=== PATIENT | male | born 1960 | race Caucasian/White ===

== ENCOUNTER 2016-04-29 06:34 | Emergency (ER) | payer MEDICAID ==
[~2016-04-29] VITALS: Ht 185.4 cm; Wt 128.8 kg
[~2016-04-29 06:34] MED LIST: ASPI-231 PO; ATOR20TA50 PO; CHOL20007 OR; DICL50TA4 PO; GABA300C8 PO; HYDR-3028 PO; INSR100KIT SC; Insulin Detemir SC; LEVO150T10 PO; METO25TA5 PO; NITR0.4S29 SL; TRIA75TA66 PO
[2016-04-29] MEDS ORDERED: KETOROLAC TROMETH 30 MG/ML 1ML VIAL IV ONE (09:00)
[2016-04-29] MEDS ORDERED: METOCLOPRAMIDE HCL 5MG/ml INJ 2ml VIAL IV ONE (09:00)
[2016-04-29 09:08] LABS: Basophils # (auto) 0.1 uL; Basophils % (auto) 0.6 % (0.0-2.0); Eosinophils # (auto) 0.4 uL; Eosinophils % (auto) 3.6 % (0.0-7.0); Hematocrit 40.6 % (41.0-53.0); Hemoglobin 13.3 g/dL (13.5-17.5); Lymphocytes # (auto) 1.6 uL; Lymphocytes % (auto) 14.9 % (10.0-50.0); Mean Corpuscular Hemoglobin 29.8 pg (28.0-32.0); Mean Corpuscular Hgb Conc. 32.7 g/dL (32.0-36.0); Mean Corpuscular Volume 91.2 fL (80.0-100.0); Mean Platelet Volume 8.7 fL (7.4-10.4); Monocytes # (auto) 0.8 uL; Monocytes % (auto) 7.5 % (0.0-12.0); Neutrophils % (auto) 73.4 % (37.0-80.0); Platelet Count (auto) 204 10^3/uL (140-450); Red Cell Distribution Width 15.6 % (11.6-16.0); White Blood Cell 10.8 10^3/uL (4.4-10.8)
[2016-04-29 09:10] LABS: Calcium 8.9 mg/dL (8.5-10.1); Magnesium 2.5 mg/dL (1.6-2.6); Potassium 4.4 mmol/L (3.5-5.1)
[2016-04-29 10:18] VITALS: BP 97/56
== END 2016-04-29 10:29 | disposition home or self-care (01) ==
LOC: ER 06:34
DX: T79.A11A Traumatic compartment syndrome of right upper extremity, initial encounter (principal); M25.532 Pain in left wrist; M79.89 Other specified soft tissue disorders; I10 Essential (primary) hypertension; E11.9 Type 2 diabetes mellitus without complications; I25.810 Atherosclerosis of coronary artery bypass graft(s) without angina pectoris; X58.XXXA Exposure to other specified factors, initial encounter; I25.2 Old myocardial infarction; E78.5 Hyperlipidemia, unspecified; Z79.4 Long term (current) use of insulin; Z79.82 Long term (current) use of aspirin
CPT/HCPCS: 29125; 36415; 80048; 83735; 85025; 93005; 96374; 96375; 99285; J1885; J2765

== ENCOUNTER 2016-04-30 15:43 | Emergency (ER) | payer MEDICAID ==
[~2016-04-30] VITALS: Ht 185.4 cm; Wt 128.8 kg
[2016-04-30 15:55] VITALS: BP 124/75
[2016-04-30] MEDS ORDERED: HYDROmorphone HCL 2 MG/ML VL IM ONE (16:45)
[2016-04-30] MEDS ORDERED: ONDANSETRON HCL 4 MG/2 ML VIAL IM ONE (16:45)
== END 2016-04-30 17:11 | disposition home or self-care (01) ==
LOC: ER 15:56
DX: G56.00 Carpal tunnel syndrome, unspecified upper limb (principal); I10 Essential (primary) hypertension; E11.9 Type 2 diabetes mellitus without complications; I25.810 Atherosclerosis of coronary artery bypass graft(s) without angina pectoris; E78.5 Hyperlipidemia, unspecified; I25.2 Old myocardial infarction; Z79.4 Long term (current) use of insulin; Z79.82 Long term (current) use of aspirin
CPT/HCPCS: 96372; 99284; J1170; J2405

== ENCOUNTER 2016-09-14 18:50 | Emergency (ER) | payer MEDICAID ==
[~2016-09-14] VITALS: Ht 182.9 cm; Wt 122.5 kg
[~2016-09-14 18:50] MED LIST changes: +GABA-497 PO; -GABA300C8 PO
[2016-09-14 18:58] VITALS: BP 157/75
[2016-09-14] MEDS ORDERED: KETOROLAC TROMETH 60MG/2ML VIAL IM ONE (20:15)
== END 2016-09-14 23:48 | disposition home or self-care (01) ==
LOC: EDUNIT# 18:50 → EDBD 18:50 → ER 18:54
DX: M54.2 Cervicalgia (principal); M54.9 Dorsalgia, unspecified; I25.810 Atherosclerosis of coronary artery bypass graft(s) without angina pectoris; Z95.1 Presence of aortocoronary bypass graft; M19.90 Unspecified osteoarthritis, unspecified site; E11.9 Type 2 diabetes mellitus without complications; E78.5 Hyperlipidemia, unspecified; I10 Essential (primary) hypertension; I25.2 Old myocardial infarction; E07.9 Disorder of thyroid, unspecified; V43.52XA Car driver injured in collision with other type car in traffic accident, initial encounter; Y93.89 Activity, other specified; Y92.89 Other specified places as the place of occurrence of the external cause; Y99.8 Other external cause status; Z79.4 Long term (current) use of insulin; Z79.899 Other long term (current) drug therapy
CPT/HCPCS: 72125; 96372; 99284; J1885

== ENCOUNTER 2018-02-20 19:53 | Emergency (ER) | payer MEDICAID ==
[~2018-02-20] VITALS: Ht 185.4 cm; Wt 104.3 kg
[~2018-02-20 19:53] MED LIST changes: -GABA-497 PO; +GABA300C10 PO
[2018-02-20 20:29] VITALS: BP 149/82
[2018-02-20 20:54] LABS: Urine Bacteria NONE SEEN /hpf (None Seen); Urine Blood Negative /uL (Negative); Urine Specific Gravity 1.015 (1.001-1.035); Urine WBC 1 /hpf (0 - 3)
[2018-02-20 21:03] LABS: Anion Gap 9 (5-15); BUN/Creatinine Ratio 12.9; Basophils # (auto) 0.1 uL; Blood Urea Nitrogen 13 mg/dL (7-18); Calcium 8.8 mg/dL (8.5-10.1); Carbon Dioxide 27 mmol/L (21-32); Chloride 104 mmol/L (98-107); Eosinophils # (auto) 0.3 uL; Eosinophils % (auto) 5.2 % (0.0-7.0); GFR African American 98 mL/min; GFR Non-African American 81 mL/min; Glucose 98 mg/dL (74-106); Hematocrit 36.8 % (41.0-53.0); Hemoglobin 12.1 g/dL (13.5-17.5); Lymphocytes # (auto) 1.4 uL; Lymphocytes % (auto) 21.3 % (10.0-50.0); Magnesium 2.1 mg/dL (1.6-2.6); Mean Corpuscular Hemoglobin 29.8 pg (28.0-32.0); Mean Corpuscular Hgb Conc. 32.9 g/dL (32.0-36.0); Mean Corpuscular Volume 90.7 fL (80.0-100.0); Monocytes # (auto) 0.5 uL; Monocytes % (auto) 7.8 % (0.0-12.0); Neutrophils # (auto) 4.4 uL; Neutrophils % (auto) 64.7 % (37.0-80.0); Nucleated Red Blood Cells % 0.1 %; Platelet Count (auto) 248 10^3/uL (140-450); Potassium 3.4 mmol/L (3.5-5.1); Red Blood Cells 4.05 10^6/uL (4.5-5.90); Red Cell Distribution Width 14.9 % (11.8-14.3); Sodium 140 mmol/L (136-145); White Blood Cell 6.7 10^3/uL (4.4-10.8)
[2018-02-20] MEDS ORDERED: FUROSEMIDE 20 MG TAB PO ONE (22:30)
== END 2018-02-21 00:48 | disposition home or self-care (01) ==
LOC: ER 19:53
DX: S52.002A Unspecified fracture of upper end of left ulna, initial encounter for closed fracture (principal); E78.5 Hyperlipidemia, unspecified; I10 Essential (primary) hypertension; I25.2 Old myocardial infarction; E07.9 Disorder of thyroid, unspecified; Z95.1 Presence of aortocoronary bypass graft; Z79.82 Long term (current) use of aspirin; Z79.4 Long term (current) use of insulin; W01.0XXA Fall on same level from slipping, tripping and stumbling without subsequent striking against object, initial encounter; Y93.89 Activity, other specified; Y92.89 Other specified places as the place of occurrence of the external cause; Y99.8 Other external cause status
CPT/HCPCS: 29105; 29125; 36415; 73060; 80048; 81001; 83735; 84484; 85025; 93005

== ENCOUNTER 2018-08-11 18:27 | Emergency (ER) | payer MEDICAID ==
[~2018-08-11] VITALS: Ht 182.9 cm; Wt 113.4 kg
[2018-08-11 20:05] LABS: Basophils # (auto) 0 uL; Basophils % (auto) 0.7 % (0.0-2.0); Eosinophils # (auto) 0.3 uL; Eosinophils % (auto) 4.7 % (0.0-7.0); Hematocrit 40.1 % (41.0-53.0); Hemoglobin 13.1 g/dL (13.5-17.5); Lymphocytes # (auto) 1.2 uL; Lymphocytes % (auto) 18.6 % (10.0-50.0); Mean Corpuscular Hemoglobin 29.5 pg (28.0-32.0); Mean Corpuscular Hgb Conc. 32.6 g/dL (32.0-36.0); Mean Corpuscular Volume 90.5 fL (80.0-100.0); Monocytes # (auto) 0.5 uL; Monocytes % (auto) 7.5 % (0.0-12.0); Neutrophils # (auto) 4.3 uL; Neutrophils % (auto) 68.5 % (37.0-80.0); Platelet Count (auto) 106 10^3/uL (140-450); Red Blood Cells 4.43 10^6/uL (4.5-5.90); Red Cell Distribution Width 17.6 % (11.8-14.3); White Blood Cell 6.3 10^3/uL (4.4-10.8)
[2018-08-11 20:10] LABS: Albumin 3.5 g/dL (3.4-5.0); Anion Gap 6 (5-15); Blood Urea Nitrogen 15 mg/dL (7-18); Calcium 9.2 mg/dL (8.5-10.1); Carbon Dioxide 28 mmol/L (21-32); Chloride 106 mmol/L (98-107); Glucose 133 mg/dL (74-106); Magnesium 2.2 mg/dL (1.6-2.6); Sodium 140 mmol/L (136-145)
[2018-08-11 20:16] LABS: Alanine Aminotransferase 22 U/L (16-61); Alkaline Phosphatase 183 U/L (45-117); Aspartate Aminotransferase 12 U/L (15-37); BUN/Creatinine Ratio 15.5; Bilirubin, Total 0.7 mg/dL (0.2-1.0); GFR African American 102 mL/min; GFR Non-African American 84 mL/min; Total Protein 7.4 g/dL (6.4-8.2)
[2018-08-11 20:38] VITALS: BP 128/66
== END 2018-08-11 22:00 | disposition home or self-care (01) ==
LOC: ER 18:27
DX: M54.12 Radiculopathy, cervical region (principal); M79.602 Pain in left arm; M19.90 Unspecified osteoarthritis, unspecified site; E78.5 Hyperlipidemia, unspecified; I11.0 Hypertensive heart disease with heart failure; I50.9 Heart failure, unspecified; I25.2 Old myocardial infarction; E07.9 Disorder of thyroid, unspecified; I25.810 Atherosclerosis of coronary artery bypass graft(s) without angina pectoris; Z95.1 Presence of aortocoronary bypass graft; Z79.899 Other long term (current) drug therapy; Z79.4 Long term (current) use of insulin; Z79.82 Long term (current) use of aspirin
CPT/HCPCS: 36415; 71045; 80053; 83735; 83880; 84484; 85025; 93005

== ENCOUNTER 2019-12-03 13:07 | Emergency (ER) | payer MEDICAID ==
[~2019-12-03] VITALS: Ht 182.9 cm; Wt 122.5 kg
[2019-12-03 13:25] VITALS: BP 125/65
== END 2019-12-03 14:31 | disposition home or self-care (01) ==
LOC: ER 13:07
DX: S90.822A Blister (nonthermal), left foot, initial encounter (principal); X58.XXXA Exposure to other specified factors, initial encounter; Y93.89 Activity, other specified; Y92.89 Other specified places as the place of occurrence of the external cause; Y99.8 Other external cause status
CPT/HCPCS: 82962

== ENCOUNTER 2021-01-12 13:44 | Emergency (ER) | payer MEDICAID, OTHER ==
[~2021-01-12] VITALS: Ht 182.9 cm; Wt 122.5 kg
[~2021-01-12 13:44] MED LIST changes: -ASPI-231 PO; +ASPI1TAB20 PO
[2021-01-12] MEDS ORDERED: HYDROmorphone HCL 2 MG/ML VL IV ONE ×2 (14:30→19:45)
[2021-01-12] MEDS ORDERED: ONDANSETRON HCL 4 MG/2 ML VIAL IV ONE (14:30)
[2021-01-12 14:37] LABS: Basophils # (auto) 0 10 ^3/uL (0-0.2); Basophils % (auto) 0.1 % (0.0-2.0); Eosinophils # (auto) 0.2 10 ^3/uL (0-0.8); Eosinophils % (auto) 1.1 % (0.0-7.0); Hematocrit 47.8 % (41.0-53.0); Hemoglobin 15.8 g/dL (13.5-17.5); Lymphocytes # (auto) 1.3 10 ^3/uL (0.4-5.4); Lymphocytes % (auto) 7.5 % (10.0-50.0); Mean Corpuscular Hemoglobin 30.5 pg (28.0-32.0); Mean Corpuscular Volume 92.6 fL (80.0-100.0); Monocytes # (auto) 0.8 10 ^3/uL (0-1.3); Monocytes % (auto) 4.8 % (0.0-12.0); Neutrophils # (auto) 14.6 10 ^3/uL (1.6-8.6); Neutrophils % (auto) 86.5 % (37.0-80.0); Nucleated Red Blood Cells % 0.2 %; Red Blood Cells 5.16 10^6/uL (4.5-5.90); Red Cell Distribution Width 14.7 % (11.8-14.3); White Blood Cell 16.9 10^3/uL (4.4-10.8)
[2021-01-12 17:18] LABS: Potassium 3.5 mmol/L (3.5-5.1)
[2021-01-12 17:27] LABS: Albumin 3.5 g/dL (3.4-5.0); BUN/Creatinine Ratio 16.3; Bilirubin, Total 0.8 mg/dL (0.2-1.0); Calcium 8.9 mg/dL (8.5-10.1); Total Protein 7.4 g/dL (6.4-8.2)
[2021-01-12 20:03] VITALS: BP 101/55
== END 2021-01-12 20:30 | disposition short-term general hospital (02) ==
LOC: ER 13:44
DX: S22.41XA Multiple fractures of ribs, right side, initial encounter for closed fracture (principal); S82.451A Displaced comminuted fracture of shaft of right fibula, initial encounter for closed fracture; J93.9 Pneumothorax, unspecified; R51.9 Headache, unspecified; M54.2 Cervicalgia; I11.0 Hypertensive heart disease with heart failure; I50.9 Heart failure, unspecified; E11.9 Type 2 diabetes mellitus without complications; E78.5 Hyperlipidemia, unspecified; E03.9 Hypothyroidism, unspecified; I25.10 Atherosclerotic heart disease of native coronary artery without angina pectoris; I25.2 Old myocardial infarction; Z95.1 Presence of aortocoronary bypass graft; Z90.89 Acquired absence of other organs; Z79.82 Long term (current) use of aspirin; Z79.4 Long term (current) use of insulin; Z79.899 Other long term (current) drug therapy; V29.9XXA Motorcycle rider (driver) (passenger) injured in unspecified traffic accident, initial encounter; Y93.89 Activity, other specified; Y92.89 Other specified places as the place of occurrence of the external cause; Y99.8 Other external cause status
CPT/HCPCS: 36415; 70450; 71045; 71260; 72125; 73070; 73600; 74177; 80053; 84484; 85025; 99285; J1170; J2405

== ENCOUNTER 2023-10-30 10:21 | Inpatient (IN) | payer MEDICAID, OTHER ==
[~2023-10-30] VITALS: Ht 182.9 cm; Wt 102.9 kg
[~2023-10-30 10:21] MED LIST changes: +GABA-1250 PO; -GABA300C10 PO
[2023-10-30] MEDS ORDERED: VANCOMYCIN PER PHARMACY 0 MG IV SCH ×2 (11:00→13:45)
[2023-10-30 11:52] LABS: Basophils # (auto) 0.1 10 ^3/uL (0-0.2); Basophils % (auto) 0.4 % (0.0-2.0); Eosinophils # (auto) 0.4 10 ^3/uL (0-0.8); Eosinophils % (auto) 2.6 % (0.0-7.0); Hemoglobin 16.8 g/dL (13.5-17.5); Lymphocytes # (auto) 0.5 10 ^3/uL (0.4-5.4); Lymphocytes % (auto) 3.7 % (10.0-50.0); Mean Corpuscular Hemoglobin 35.4 pg (28.0-32.0); Mean Corpuscular Hgb Conc. 35.1 g/dL (32.0-36.0); Mean Corpuscular Volume 100.9 fL (80.0-100.0); Monocytes # (auto) 0.6 10 ^3/uL (0-1.3); Monocytes % (auto) 4.2 % (0.0-12.0); Neutrophils % (auto) 89.1 % (37.0-80.0); Platelet Count (auto) 102 10^3/uL (140-450); Red Blood Cells 4.75 10^6/uL (4.5-5.90); Red Cell Distribution Width 15.1 % (11.8-14.3); White Blood Cell 14.5 10^3/uL (4.4-10.8)
[2023-10-30] MEDS: SODIUM CHLORIDE 0.9% 1,000 ML IV ONE ×2 (11:59→13:45)
[2023-10-30] MEDS: PIPERACILLIN-TAZOB 3.375GM 100 ML IV ONE (11:59)
[2023-10-30 12:02] LABS: Alanine Aminotransferase 65 U/L (7-40); Albumin 4.4 g/dL (3.2-4.8); Alkaline Phosphatase 249 U/L (46-116); Anion Gap 10 (5-15); Aspartate Aminotransferase 53 U/L (13-40); BUN/Creatinine Ratio 11.2 (10.0-20.0); Bilirubin, Total 1.5 mg/dL (0.2-1.0); Blood Urea Nitrogen 21 mg/dL (9-23); Calcium 10.1 mg/dL (8.7-10.4); Carbon Dioxide 21 mmol/L (20-30); Chloride 105 mmol/L (98-107); Glucose 124 mg/dL (74-106); Potassium 3.5 mmol/L (3.5-5.1); Sodium 136 mmol/L (136-145); Total Protein 7.3 g/dL (5.7-8.2)
[2023-10-30 12:11] LABS: Lactic Acid w/Reflex 2.2 mmol/L (0.4-2.0)
[2023-10-30 12:15] VITALS: PULSE 75; RESP 17; O2SAT 95
[2023-10-30] MEDS ORDERED: MORPHINE SULFATE INJ 2 MG/ml SYRG IV PRN (13:45)
[2023-10-30] MEDS ORDERED: NITROGLYCERIN 0.4 MG SL TAB SL PRN (13:45)
[2023-10-30] MEDS: CEFEPIME 1GM/ 50ML 50 ML IV SCH (14:00)
[2023-10-30 14:56] LABS: Urine Bacteria None Seen /hpf (None Seen)
[2023-10-30 15:16] LABS: Urine Blood 1+ /uL (Negative); Urine Clarity Clear (Clear); Urine Color Light-Yellow (Yellow); Urine Protein, UAD Negative (Negative); Urine Specific Gravity 1.008 (1.001-1.035); Urine Urobilinogen Normal (Negative); Urine WBC 1 /hpf (0 - 3); Urine pH 6.5 (5.0-9.0)
[2023-10-30] MEDS: VANCOMYCIN 1GM/200ML 200 ML IV SCH (15:21)
[2023-10-30] MEDS: SODIUM CHLORIDE 0.9% 1,000 ML IV SCH (15:23)
[2023-10-30 15:34] LABS: Amphetamine Screen, Urine Neg (NEGATIVE)
[2023-10-30 15:35] LABS: Barbiturate Scree,Urine Neg (NEGATIVE); Benzodiazephine Screen, Urine Neg (NEGATIVE); Cocaine Screen, Urine Neg (NEGATIVE); Opiate Scree,Urine Neg (NEGATIVE)
[2023-10-30 15:36] LABS: Phencyclidine Screen, Urine Neg (NEGATIVE)
[2023-10-30 15:37] LABS: Cannabinoid Screen, Urine Pos (NEGATIVE)
[2023-10-30] MEDS: NOREPINEPHRINE 8 MG/250ML KIT 250 ML IV SCH (15:40)
[2023-10-30 19:30] VITALS: PULSE 59; RESP 19; O2SAT 99
[2023-10-30 21:30] VITALS: PULSE 68; RESP 16; O2SAT 100
[2023-10-30] MEDS: ATORVASTATIN 20 MG TAB PO SCH (22:17)
[2023-10-30] MEDS: GABAPENTIN 300 MG CAP PO SCH (22:17)
[2023-10-31 03:28] LABS: Basophils # (auto) 0 10 ^3/uL (0-0.2); Eosinophils # (auto) 0.6 10 ^3/uL (0-0.8); Hemoglobin 15.3 g/dL (13.5-17.5)
[2023-10-31 03:31] LABS: Basophils % (auto) 0.4 % (0.0-2.0); Eosinophils % (auto) 5.4 % (0.0-7.0); Hematocrit 44.2 % (41.0-53.0); Lymphocytes # (auto) 0.6 10 ^3/uL (0.4-5.4); Lymphocytes % (auto) 6.2 % (10.0-50.0); Mean Corpuscular Hemoglobin 34.7 pg (28.0-32.0); Mean Corpuscular Hgb Conc. 34.6 g/dL (32.0-36.0); Mean Corpuscular Volume 100.3 fL (80.0-100.0); Monocytes # (auto) 0.6 10 ^3/uL (0-1.3); Monocytes % (auto) 5.5 % (0.0-12.0); Neutrophils # (auto) 8.6 10 ^3/uL (1.6-8.6); Neutrophils % (auto) 82.5 % (37.0-80.0); Platelet Count (auto) 75 10^3/uL (140-450); Red Cell Distribution Width 15.1 % (11.8-14.3); White Blood Cell 10.5 10^3/uL (4.4-10.8)
[2023-10-31 03:35] LABS: Alanine Aminotransferase 63 U/L (7-40); Albumin 3.6 g/dL (3.2-4.8); Alkaline Phosphatase 225 U/L (46-116); Anion Gap 12 (5-15); Aspartate Aminotransferase 42 U/L (13-40); BUN/Creatinine Ratio 12.8 (10.0-20.0); Bilirubin, Total 0.8 mg/dL (0.2-1.0); Blood Urea Nitrogen 15 mg/dL (9-23); Calcium 9.1 mg/dL (8.7-10.4); Carbon Dioxide 14 mmol/L (20-30); Chloride 112 mmol/L (98-107); Glucose 114 mg/dL (74-106); Magnesium 1.9 mg/dL (1.6-2.6); Potassium 3.1 mmol/L (3.5-5.1); Sodium 138 mmol/L (136-145); Total Protein 6.2 g/dL (5.7-8.2)
[2023-10-31 04:42] LABS: Macrocytosis Slight; Platelet Estimate Decreased
[2023-10-31] MEDS: LEVOTHYROXINE SODIUM 100 MCG TAB PO SCH (06:35)
[2023-10-31] MEDS: LEVOTHYROXINE SODIUM 50 MCG TAB PO SCH (06:35)
[2023-10-31] MEDS ORDERED: PATIENTS OWN MEDICATION (Levothyroxine Sodium 150 MCG) PO SCH (07:00)
[2023-10-31 07:50] VITALS: PULSE 75; RESP 18; O2SAT 95
[2023-10-31] MEDS: CHOLECALCIFEROL (VITD3) 1,000UNIT=25mCg TAB PO SCH (09:34)
[2023-10-31] MEDS: ASPirin-EC 81 mg tab PO SCH (09:34)
[2023-10-31] MEDS ORDERED: PATIENTS OWN MEDICATION (Cholecalciferol (Vitamin D3) 2,000 UNIT) OR SCH (10:00)
[2023-10-31] MEDS: VANCOMYCIN 1.25GM/250ML 250 ML IV SCH (13:54)
[2023-10-31] MEDS: POTASSIUM CHL 20 Meq TABLET PO ONE (13:55)
[2023-10-31] MEDS ORDERED: CEFEPIME 1GM/ 50ML 50 ML IV SCH (16:00)
[2023-10-31 19:30] VITALS: PULSE 57; RESP 14; O2SAT 98
[2023-11-01] VITALS (77 sets, daily range): BP systolic 71–159; BP diastolic 29–74; PULSE 44–79; RESP 10–31; TEMP 97.5–98.1; O2SAT 90–99
[2023-11-01] MEDS: PIPERACILLIN-TAZOB 3.375GM 100 ML IV SCH (00:17)
[2023-11-01 04:29] LABS: Eosinophils # (auto) 0.6 10 ^3/uL (0-0.8); Lymphocytes # (auto) 1.5 10 ^3/uL (0.4-5.4); Monocytes # (auto) 0.4 10 ^3/uL (0-1.3); Neutrophils % (auto) 61.2 % (37.0-80.0)
[2023-11-01 04:35] LABS: Basophils # (auto) 0 10 ^3/uL (0-0.2); Basophils % (auto) 0.6 % (0.0-2.0); Eosinophils % (auto) 9.2 % (0.0-7.0); Hemoglobin 14.4 g/dL (13.5-17.5); Lymphocytes % (auto) 23.1 % (10.0-50.0); Mean Corpuscular Hemoglobin 35.2 pg (28.0-32.0); Mean Corpuscular Hgb Conc. 35.1 g/dL (32.0-36.0); Mean Corpuscular Volume 100.2 fL (80.0-100.0); Monocytes % (auto) 5.9 % (0.0-12.0); Nucleated Red Blood Cells % 0.1 %; Platelet Count (auto) 81 10^3/uL (140-450); Red Blood Cells 4.09 10^6/uL (4.5-5.90); Red Cell Distribution Width 14.8 % (11.8-14.3); White Blood Cell 6.5 10^3/uL (4.4-10.8)
[2023-11-01 04:46] LABS: Chloride 116 mmol/L (98-107); Potassium 3.2 mmol/L (3.5-5.1); Sodium 140 mmol/L (136-145)
[2023-11-01 04:47] LABS: Anion Gap 8 (5-15); Calcium 9.2 mg/dL (8.7-10.4); Carbon Dioxide 16 mmol/L (20-30)
[2023-11-01 04:52] LABS: Blood Urea Nitrogen 13 mg/dL (9-23); Glucose 133 mg/dL (74-106)
[2023-11-01 04:53] LABS: Alkaline Phosphatase 201 U/L (46-116)
[2023-11-01 04:54] LABS: Alanine Aminotransferase 46 U/L (7-40); Albumin 3.4 g/dL (3.2-4.8); Aspartate Aminotransferase 22 U/L (13-40); Bilirubin, Total 0.6 mg/dL (0.2-1.0); Total Protein 5.9 g/dL (5.7-8.2)
[2023-11-01] MEDS: POTASSIUM CHL 20 Meq TABLET PO ONE (11:00)
[2023-11-01] MEDS: HYDROCORTISONE SOD SUCC 100 MG/2ML INJ VIAL IV ONE (14:44)
[2023-11-01] MEDS: MIDODRINE HCL 10 MG TAB PO SCH (17:33)
[2023-11-02] VITALS (71 sets, daily range): BP systolic 92–139; BP diastolic 38–80; PULSE 44–64; RESP 10–27; TEMP 97.9–98.7; O2SAT 92–100
[2023-11-02 05:48] LABS: Anion Gap 5 (5-15); Calcium 9.3 mg/dL (8.7-10.4); Carbon Dioxide 18 mmol/L (20-30); Chloride 119 mmol/L (98-107); Potassium 3.9 mmol/L (3.5-5.1); Sodium 142 mmol/L (136-145)
[2023-11-02 05:53] LABS: Glucose 107 mg/dL (74-106)
[2023-11-02 05:54] LABS: Blood Urea Nitrogen 9 mg/dL (9-23); Magnesium 1.9 mg/dL (1.6-2.6)
[2023-11-02] MEDS ORDERED: MID10T PO (14:10)
[2023-11-02] MEDS ORDERED: CEFD300C2 PO (14:16)
[2023-11-02] MEDS: TETANUS-DIPTH-ACEL PERTUSSIS 0.5ML SYR Tdap IM ONE (16:01)
[2023-11-02] MEDS ORDERED: FURO40TA4 PO (16:46)
[2023-11-02] MEDS ORDERED: ALLO300T2 PO (16:48)
[2023-11-02] MEDS ORDERED: SACU1TAB7 PO (16:48)
[2023-11-02] MEDS ORDERED: DULO20CA PO (16:51)
[2023-11-02] MEDS ORDERED: MULT-1018 PO (16:52)
[2023-11-02] MEDS ORDERED: DAPA1TAB4 PO (16:52)
[2023-11-02] MEDS ORDERED: [UNRECOGNIZED DRUG - CODE] PO (16:53)
[2023-11-02] MEDS ORDERED: OMEG1400 PO (16:53)
== END 2023-11-02 17:15 | disposition home health service (06) | DRG 720 ==
LOC: ER 10:21 → TELE 13:42 → ICU CENTRL 11-01 05:10
PROVIDERS: ADMIT Hospitalist; ATTEND Hospitalist
DX: A41.9 Sepsis, unspecified organism (principal); N17.0 Acute kidney failure with tubular necrosis; E87.20 Acidosis, unspecified; I13.0 Hypertensive heart and chronic kidney disease with heart failure and stage 1 through stage 4 chronic kidney disease, or unspecified chronic kidney disease; E11.22 Type 2 diabetes mellitus with diabetic chronic kidney disease; I95.9 Hypotension, unspecified; I50.9 Heart failure, unspecified; L03.011 Cellulitis of right finger; L40.50 Arthropathic psoriasis, unspecified; L03.114 Cellulitis of left upper limb; E03.9 Hypothyroidism, unspecified; N18.9 Chronic kidney disease, unspecified; E66.9 Obesity, unspecified; E78.5 Hyperlipidemia, unspecified; I25.10 Atherosclerotic heart disease of native coronary artery without angina pectoris; M06.9 Rheumatoid arthritis, unspecified; Z79.82 Long term (current) use of aspirin; Z83.3 Family history of diabetes mellitus; Z82.49 Family history of ischemic heart disease and other diseases of the circulatory system; Z95.1 Presence of aortocoronary bypass graft; Z79.899 Other long term (current) drug therapy; W54.0XXA Bitten by dog, initial encounter; Y93.89 Activity, other specified; Y92.89 Other specified places as the place of occurrence of the external cause; Y99.8 Other external cause status; Z68.29 Body mass index [BMI] 29.0-29.9, adult
CPT/HCPCS: 36415; 71045; 73200; 76705; 80048; 80053; 80202; 80307; 81001; 83605; 83735; 83880; 84484; 85025; 87040; 87081; 87086; 93306; 96365; 96366; G0378; J2543

== ENCOUNTER 2024-12-05 10:17 | Emergency (ER) | payer MEDICARE, MEDICAID ==
[~2024-12-05] VITALS: Ht 182.9 cm; Wt 113.7 kg
[~2024-12-05 10:17] MED LIST changes: +ALLO300T2 PO; +CEFD300C2 PO; +DAPA1TAB4 PO; -DICL50TA4 PO; +DULO20CA PO; +FURO40TA4 PO; -GABA-1250 PO; -HYDR-3028 PO; -INSR100KIT SC; -Insulin Detemir SC; +MID10T PO; +MULT-1018 PO; -NITR0.4S29 SL; +OMEG1400 PO; +SACU1TAB7 PO; -TRIA75TA66 PO
--- NOTE | 2024-12-05 11:11 | DVH ---
CLINICAL HISTORY: PAIN TECHNIQUE: 3 views of the left wrist were obtained. COMPARISON: CT CT R HAND WO CONTRAST on DOS: 10/30/23, CT CT L HAND WO CONTRAST on DOS: 10/30/23 FINDINGS: There is an acute mildly impacted comminuted fracture of the distal radius with intra-articular exten savanna. There is a slightly displaced acute ulnar styloid fracture. There is generalized soft tissue sw elling. No radiopaque foreign body is seen. IMPRESSION: Acute distal radial and ulnar styloid fractures.
[2024-12-05 11:42] VITALS: BP 149/80; PULSE 62; RESP 18; TEMP 98; O2SAT 100
--- NOTE | 2024-12-05 11:56 | ED.PDOC ---
Musculoskeletal HPI Comments A 64 YEAR OLD MALE PRESENTS TO THE ED WITH COMPLAINT OF UPPER EXTREMITY PAIN. PT STATES HE WAS TAKING A WALK EARLIER THIS AM AND STATES HE SLIPPED AND FELL ON A ROCK. PT STATES HE LANDED ON L HAND AND WRIST TO HELP BREAK HIS FALL. PT HAS SINCE BEEN HAVING PAIN AND CAME TO THE ED FOR FURTHER EVALUATION. PT CAME TO THE ED FOR FURTHER EVALUATION. PATIENT DENIES FEVER, CHILLS, SHORTNESS OF BREATH, CHEST PAIN, ABDOMINAL PAIN, NAUSEA, VOMITING, HEADACHE, OR OTHER COMPLAINTS. NO OTHER SYMPTOMS OR MODIFYING FACTORS AT THIS TIME. PATIENT IS ALERT, ORIENTED X 4, AND HAS STEADY GAIT. Chief Complaint: Upper Extremity Time Seen by MD: 11:51 Primary Care Provider: KENDRICK Rod Notes: Nurses Notes, Medications, Allergies Allergies: Coded Allergies: NO KNOWN ALLERGIES (Unverified , 12/11/10) Home Meds Active Scripts Cefdinir (Cefdinir) 300 Mg Cap, 1 CAP PO BID, #14 CAP Prov:CECE MOONEY MD 11/02/23 Midodrine HCl (Midodrine HCl) 10 Mg Tab, 10 MG PO BID, #14 TAB Prov:CECE MOONEY MD 11/02/23 Atorvastatin Calcium (ATORVASTATIN CALCIUM) 20 Mg Tab, 20 MG PO HS, #30 TAB Prov:REBECCA MCLEAN MD 07/07/14 Reported Medications [place]-3 Fatty Acids ([place]-3) 1,400 Mg Cap, 720 MG PO DAILY, CAP 11/02/23 Multiple Vitamin (Multivitamins) Tab, 1 TAB PO DAILY, #90 TAB 3 Refills 11/02/23 Dapagliflozin Propanediol (Farxiga) 10 Mg Tab, 5 MG PO DAILY, TAB 11/02/23 Duloxetine Hcl (Cymbalta) 20 Mg Cap, 30 MG PO DAILY, CAP 11/02/23 Sacubitril-Valsartan (Entresto 49-51 mg) 1 Tab Tab, 2 TAB PO DAILY, TAB CHECK YOUR BP BEFORE TAKING HOLD FOR BP LESS THAN 100/60 DO NOT TAKE AT THE SAME TIME THE METOPROLOL OR FUROSEMIDE TAKE AN HOUR APART 11/02/23 Allopurinol (Allopurinol) 300 Mg Tab, 300 MG PO DAILY for 30 Days, MG 11/02/23 Furosemide (Furosemide) 40 Mg Tab, 40 MG PO DAILY for 30 Days CHECK YOUR BP PRIOR TO TAKING MED HOLD FOR BP LESS THAN 100/60 DO NOT TAKE AT THE SAME TIME ENTRESTO OR METOPROLOL TAKE THESE MEDS AN HOUR APARTFROM EACH OTHER 11/02/23 Cholecalciferol (VITAMIN D3) 2,000 Unit Tab, 2000 UNIT OR DAILY, TAB 07/06/14 Aspirin (Aspir-81) 81 Mg Tab, 81 MG PO DAILY 07/06/14 Metoprolol Tartrate (Metoprolol Tartrate) 25 Mg Tab, 25 MG PO DAILY, #30 CHECK YOUR BP BEFORE TAKING HOLD IF BP LESS THAN 100/60 DO NOT TAKE AT THE SAME TIME ENTRESTO OR FUROSEMIDE TAKE THESE MEDS AN HOUR APART FROM EACH OTHER 07/06/14 Levothyroxine Sodium (Levothyroxine Sodium) 150 Mcg Tab, 150 MCG PO QAM, #30 07/06/14 Information Source: Patient Mode of Arrival: Ambulatory Brought in by: SELF Location: Left Extremity Location: Wrist Timing: Hours Prehospital treatment: None Severity: Moderate Able to Move Extremity: Yes Bear Weight: Limited Pain: Mild, Moderate Hand Dominance: Right Mechanism: Other Circumstances: Fall Onset of Symptoms: During Exercise Symptoms: Swelling, Pain DVT Risk Factors: NONE Last Tetanus: UTD Associated signs and symptoms: Wrist pain Past Medical History PAST MEDICAL HISTORY: Arthritis, CAD, CHF, DM, High Lipids, HTN, MT, Thyroid Surgical History: CABG, Tonsillectomy Family History Family History: No family hx of Heart roxie Social History Smoker: Non-Smoker Alcohol: Denies ETOH Use Drugs: Denies Drug Use Lives In: Home Constitutional: denies: chills, diaphoresis, fatigue, fever, malaise, sweats, weakness, others EENTM: denies: blurred vision, double vision, ear bleeding, ear discharge, ear drainage, ear pain, ear ringing, eye pain, eye redness, hearing loss, mouth pain, mouth swelling, nasal discharge, nose bleeding, nose congestion, nose pain, photophobia, tearing, throat pain, throat swelling, voice changes, others Respiratory: denies: cough, hemoptysis, orthopnea, SOB at rest, shortness of breath, SOB with excertion, stridor, wheezing, others Cardiovascular: denies: chest pain, dizzy spells, diaphoresis, Dyspnea on exertion, edema, irregular heart beat, left arm pain, lightheadedness, palpitations, PND, syncope, others Gastrointestinal: denies: abdomen distended, abdominal pain, blood streaked bowels, constipated, diarrhea, dysphagia, difficulty swallowing, hematemesis, melena, nausea, poor appetite, poor fluid intake, rectal bleeding, rectal pain, vomiting, others Genitourinary: denies: burning, dysuria, flank pain, frequency, hematuria, incontinence, penile discharge, penile sore, pain, testicle pain, testicle swelling, urgency, others Neurological: denies: dizziness, fainting, headache, left sided numbness, left sided weakness, numbness, paresthesia, pre-existing deficit, right sided numbness, right sided weakness, seizure, speech problems, tingling, tremors, weakness, others Musculoskeletal: reports: joint pain (L WRIST), joint swelling; denies: back pain, gout, muscle pain, muscle stiffness, neck pain, others Integumetry: denies: bruises, change in color, change in hair/nails, dryness, laceration, lesions, lumps, rash, wounds, others Allergic/Immunocompromised: denies: Difficulty Healing, Frequent Infections, Hives, Itching, others Hematologic/Lymphatic: denies: anemia, blood clots, easy bleeding, easy bruising, swollen glands, others Endocrine: denies: excessive hunger, excessive sweating, excessive thirst, excessive urination, flushing, intolerance to cold, intolerance to heat, unexplained weight gain, unexplained weight loss, others Psychiatric: denies: anxiety, bipolar disorder, depression, hopeless, panic disorder, schizophrenia, sleepless, suicidal, others All Other Systems: Reviewed and Negative Physical Exam General Appearance: Obese HEENT: Normal ENT Inspection, PERRL/EOMI, Pharynx Normal, TMs Normal Neck: Full Range of Motion, Non-Tender, Normal, Normal Inspection Respiratory: Chest Non-Tender, Lungs Clear, No Accessory Muscle Use, No Respiratory Distress, Normal Breath Sounds Cardiovascular: No Edema, No JVD, No Murmur, No Gallop, Normal Peripheral Pulses, Regular Rate/Rhythm Breast Exam: Deferred Gastrointestinal: No Organomegaly, Non Tender, No Pulsatile Mass, Normal Bowel Sounds, Soft Genitalia: Deferred Pelvic: Deferred Rectal: Deferred Extremities: Decreased range of motion, No calf tenderness, Normal capillary refill, No pedal edema, Swelling (BONY TENDERNESS AND SWELLING ON LEFT WRIST, NO OPEN WOUND AND DEFORMITY. ), Tender (BONY TENDERNESS AND SWELLING ON LEFT WRIST. 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 Was a procedure done?: No Differential Diagnosis EXT Differential Diagnosis: Fracture, Sprain, Dislocation, Strain, Arthritis, Bursitis X-Ray, Labs, Meds, VS Vital Signs Date Time Temp Pulse Resp B/P (MAP) Pulse Ox O2 Delivery O2 Flow Rate FiO2 12/05/24 11:42 98.0 62 18 149/80 (103) 100 98.0 12/05/24 11:42 62 18 100 Room Air 12/05/24 10:19 98.0 62 18 149/80 100 98.0 [place] [address] Ph: [phone] DIAGNOSTIC IMAGING Diagnostic Imaging Report : [id number] Signed PATIENT: PRATIBHA HERNANDEZ ACCT: [id number] UNIT: [id number] : 1960 LOC: ER ROOM / BED: / AGE / SEX: 64 / M ADM STATUS: REG ER SERVICE 1041 ORDERING PHYSICIAN: VIOLET COLINDRES PROCEDURE(s): LWRI - L WRIST 3+ VIEW XRAY REASON: PAIN ORDER NUMBER(s): [id number], ACCESSION NUMBER(s): [id number] CLINICAL HISTORY: PAIN TECHNIQUE: 3 views of the left wrist were obtained. COMPARISON: CT CT R HAND WO CONTRAST on DOS: 10/30/23, CT CT L HAND WO CONTRAST on DOS: 10/30/23 FINDINGS: There is an acute mildly impacted comminuted fracture of the distal radius with intra-articular extension. There is a slightly displaced acute ulnar styloid fracture. There is generalized soft tissue swelling. No radiopaque foreign body is seen. IMPRESSION: Acute distal radial and ulnar styloid fractures. ATED BY: PATY BUSBY MD DICTATED DATE/TIME: 12/05/241107 SIGNED BY: PATY BUSBY MD SIGNED DATE/TIME: 12/05/241107 CC: X-Ray, Labs, Meds, VS Comment COURSE: EXTERNAL MEDICAL RECORDS REVIEWED: [NONE] INDEPENDENT HISTORIANS: [NONE] SOCIAL DETERMINANTS OF HEALTH: [NONE] LABS ORDERED: NONE REVIEWED AND INTERPRETED RESULTS: NONE IMAGING ORDERED: L WRIST X-RAY TREATMENTS ORDERED: SPLINT AND ARM SLING OF LEFT WRIST PROCEDURES PERFORMED: NONE CRITICAL CARE TIME: NONE I HAVE DISCUSSED THE PATIENT WITH THE ATTENDING PHYSICIAN, DR. LOPEZ, HE AGREES WITH THE PATIENT'S PLAN OF CARE AND DISPOSITION. BASED ON HISTORY OF PRESENT ILLNESS, AND PHYSICAL EXAM, PATIENT WILL BE DISCHARGED HOME. PT HAS P[AIN MEDICATION AT HOME. SHARED DECISION MAKING: DISCUSSED WITH PATIENT THAT THEIR WORKUP WAS NORMAL. PATIENT INSTRUCTED TO FOLLOW UP WITH PRIMARY CARE PROVIDER IN 1-2 DAYS FOR RE- EVALUATION OF SYMPTOMS. PATIENT VERBALIZES UNDERSTANDING TO RETURN TO ED FOR NEW OR WORSENING SYMPTOMS OR IF FOLLOW UP WITH PCP CANNOT BE OBTAINED. PATIENT FEELS COMFORTABLE GOING HOME AT THIS TIME. ALL QUESTIONS ADDRESSED AT TIME OF DISCHARGE. Time of 1ST Reevaluation: 12:02 Reevaluation 1ST: Improved Patient Education/Counseling: Diagnosis, Treatment, Need For Follow Up Family Education/Counseling: Diagnosis, Treatment, No Family Present Medical Screening: No EMC Exist At This Time Departure 1 Departure Time of Disposition: 12:03 Impression: Primary Impression: Distal radius fracture, left Qualified Codes: S52.592A - Other fractures of lower end of left radius, initial encounter for closed fracture Additional Impression: Fracture of ulnar styloid Qualified Codes: S52.615A - Nondisplaced fracture of left ulna styloid process, initial encounter for closed fracture Disposition: 01 HOME / SELF CARE / HOMELESS Condition: Stable Additional Instructions: INSTRUCTIONS: FOLLOW-UP WITH PCP IN 1 TO 2 DAYS. TAKE MEDICATIONS PRESCRIBED. RETURN TO ED FOR ANY NEW OR WORSENING SYMPTOMS. Discharged With: Self Critical Care Note Critical Care Time?: No Stability Stability form required: No Heart Score Heart Score: Heart Score Response (Comments) Value History N/A 0 EKG N/A 0 Age N/A 0 Risk Factors N/A 0 Troponin N/A 0 Total 0 I personally scribed for VIOLET COLINDRES ([email or web address]) on 12/05/24 at 11:56. Electronically submitted by Zaira Ernandez ([email or web address]). VIOLET COLINDRES Dec 05, 2024 11:56
== END 2024-12-05 11:44 | disposition home or self-care (01) ==
LOC: ER 10:17
DX: S52.592A Other fractures of lower end of left radius, initial encounter for closed fracture (principal); S52.611A Displaced fracture of right ulna styloid process, initial encounter for closed fracture; I11.0 Hypertensive heart disease with heart failure; I50.9 Heart failure, unspecified; I25.10 Atherosclerotic heart disease of native coronary artery without angina pectoris; E11.9 Type 2 diabetes mellitus without complications; M19.90 Unspecified osteoarthritis, unspecified site; E78.5 Hyperlipidemia, unspecified; Z79.899 Other long term (current) drug therapy; Z79.84 Long term (current) use of oral hypoglycemic drugs; Z79.82 Long term (current) use of aspirin; Z95.1 Presence of aortocoronary bypass graft; Z79.890 Hormone replacement therapy; Z90.89 Acquired absence of other organs; W01.198A Fall on same level from slipping, tripping and stumbling with subsequent striking against other object, initial encounter; Y93.89 Activity, other specified; Y92.89 Other specified places as the place of occurrence of the external cause; Y99.8 Other external cause status
CPT/HCPCS: 29125; 73110